=== PATIENT | female | born 1955 | race Caucasian/White ===

== ENCOUNTER → 2018-10-18 | Day surgery (SDC) | payer OTHER ==
[~2018-10-18] MED LIST: ACETAMINOPHEN C PO; ACETAMINOPHEN-1 EAC2 PO; BUMETANIDE1 MG PO; CIPRO250 MG PO; CIPRO500 MG PO; LIPIT PO; MACROBID 100 M100 MG PO; MIRAPEX0.25 MG PO; SYNTHROID100 MCG PO; TRENTAL PO; ULTRACET PO; ZINC LOZENGES1 EACH PO
== END | disposition home or self-care (01) ==
LOC: ADM 10-12 11:30 → CIR.AMB 05:40
DX: R39.14 Feeling of incomplete bladder emptying (principal)